=== PATIENT | female | born 1955 | race Two or more races ===

== ENCOUNTER 2017-09-26 19:55 | Emergency (ER) | payer MEDICAID ==
[~2017-09-26] VITALS: Ht 157.5 cm; Wt 75.7 kg
[2017-09-26 22:55] VITALS: BP 130/70
[2017-09-26] MEDS ORDERED: LIDOCAINE 1% HCL (LOCAL ANESTH.) INJ 20ML MDV IN ONE (23:00)
[2017-09-26] MEDS ORDERED: TETANUS-DIPTH-ACEL PERTUSSIS 0.5ML SYRG IM ONE (23:00)
== END 2017-09-26 23:36 | disposition home or self-care (01) ==
LOC: ER 19:59
DX: L02.414 Cutaneous abscess of left upper limb (principal); E78.5 Hyperlipidemia, unspecified; Z88.6 Allergy status to analgesic agent; Z88.8 Allergy status to other drugs, medicaments and biological substances
CPT/HCPCS: 10060; 90471; 90715; 99283; J2001

== ENCOUNTER 2018-01-02 14:42 | Emergency (ER) | payer MEDICAID ==
[~2018-01-02] VITALS: Ht 157.5 cm; Wt 74.4 kg
[2018-01-02 14:53] VITALS: BP 122/71
[2018-01-02] MEDS ORDERED: SODIUM CHLORIDE 0.9% 500 ML IVB ONE (15:06)
[2018-01-02] MEDS ORDERED: ONDANSETRON HCL 4 MG/2 ML VIAL IV ONE (15:15)
[2018-01-02] MEDS ORDERED: MORPHINE SULFATE 4 MG/ML SYR/VIAL IV ONE (15:15)
[2018-01-02 15:26] LABS: Basophils # (auto) 0.1 uL; Basophils % (auto) 1.2 % (0.0-2.0); Eosinophils # (auto) 0.1 uL; Eosinophils % (auto) 2.2 % (0.0-7.0); Hematocrit 41.7 % (36.0-46.0); Hemoglobin 14.1 g/dL (12.2-16.2); Lymphocytes # (auto) 2.2 uL; Lymphocytes % (auto) 34.4 % (10.0-50.0); Mean Corpuscular Hemoglobin 31.1 pg (28.0-32.0); Mean Corpuscular Hgb Conc. 33.9 g/dL (32.0-36.0); Mean Corpuscular Volume 91.8 fL (80.0-100.0); Monocytes # (auto) 0.5 uL; Monocytes % (auto) 7.5 % (0.0-12.0); Neutrophils # (auto) 3.4 uL; Neutrophils % (auto) 54.7 % (37.0-80.0); Nucleated Red Blood Cells % 0.6 %; Platelet Count (auto) 248 10^3/uL (140-450); Red Blood Cells 4.55 10^6/uL (4.0-5.20); Red Cell Distribution Width 13.1 % (11.8-14.3); White Blood Cell 6.2 10^3/uL (4.4-10.8)
[2018-01-02 15:33] LABS: Urine Bacteria NONE SEEN /hpf (None Seen); Urine Blood TRACE /uL (Negative); Urine Mucus FEW (None Seen); Urine Specific Gravity 1.034 (1.001-1.035); Urine WBC 1 /hpf (0 - 5)
[2018-01-02 15:49] LABS: Albumin 3.7 g/dL (3.4-5.0); BUN/Creatinine Ratio 18.9; Calcium 8.4 mg/dL (8.5-10.1); Magnesium 2.5 mg/dL (1.6-2.6); Potassium 3.8 mmol/L (3.5-5.1)
[2018-01-02 15:51] LABS: Bilirubin, Total 0.3 mg/dL (0.2-1.0); Total Protein 7.3 g/dL (6.4-8.2)
== END 2018-01-02 16:53 | disposition home or self-care (01) ==
LOC: ER 14:45
DX: R10.11 Right upper quadrant pain (principal); Z88.6 Allergy status to analgesic agent; Z88.8 Allergy status to other drugs, medicaments and biological substances; Z90.49 Acquired absence of other specified parts of digestive tract
CPT/HCPCS: 36415; 71045; 74176; 80053; 81001; 82150; 83690; 83735; 85025; 93005; 94761; 96374; 96375; 99285; J2270; J2405; J7030

== ENCOUNTER 2018-11-13 10:22 | Emergency (ER) | payer MEDICAID ==
[~2018-11-13] VITALS: Ht 157.5 cm; Wt 72.6 kg
[2018-11-13 10:30] VITALS: BP 146/76
[2018-11-13] MEDS ORDERED: ACETAMINOPHEN 325 MG TAB PO ONE (11:15)
[2018-11-13] MEDS ORDERED: IBUPROFEN 800 MG TAB PO ONE (11:15)
== END 2018-11-13 11:32 | disposition home or self-care (01) ==
LOC: ER 10:22
DX: S46.911A Strain of unspecified muscle, fascia and tendon at shoulder and upper arm level, right arm, initial encounter (principal); M19.011 Primary osteoarthritis, right shoulder; Z88.5 Allergy status to narcotic agent; Z88.8 Allergy status to other drugs, medicaments and biological substances; Z90.49 Acquired absence of other specified parts of digestive tract; W00.0XXA Fall on same level due to ice and snow, initial encounter; Y93.89 Activity, other specified; Y99.8 Other external cause status; Y92.89 Other specified places as the place of occurrence of the external cause
CPT/HCPCS: 73030

== ENCOUNTER 2019-03-23 16:03 | Emergency (ER) | payer OTHER, MEDICAID ==
[~2019-03-23] VITALS: Ht 157.5 cm; Wt 76.2 kg
[2019-03-23] MEDS ORDERED: KETOROLAC TROMETH 60MG/2ML VIAL IM ONE (23:00)
[2019-03-23 23:22] VITALS: BP 125/79
== END 2019-03-23 23:22 | disposition home or self-care (01) ==
LOC: ER 16:04
DX: S33.5XXA Sprain of ligaments of lumbar spine, initial encounter (principal); M62.830 Muscle spasm of back; E78.5 Hyperlipidemia, unspecified; Z90.49 Acquired absence of other specified parts of digestive tract; Z88.6 Allergy status to analgesic agent; Z88.8 Allergy status to other drugs, medicaments and biological substances; X58.XXXA Exposure to other specified factors, initial encounter; Y93.89 Activity, other specified; Y92.096 Garden or yard of other non-institutional residence as the place of occurrence of the external cause; Y99.9 Unspecified external cause status
CPT/HCPCS: 72100; 96372; 99283; J1885

== ENCOUNTER 2019-11-28 21:22 | Emergency (ER) | payer MEDICAID, OTHER ==
[~2019-11-28] VITALS: Ht 157.5 cm; Wt 78.5 kg
[2019-11-28 21:42] VITALS: BP 128/58
== END 2019-11-29 03:51 | disposition home or self-care (01) ==
LOC: ER 21:24
DX: M13.842 Other specified arthritis, left hand (principal); M13.841 Other specified arthritis, right hand; E78.5 Hyperlipidemia, unspecified; Z88.8 Allergy status to other drugs, medicaments and biological substances; Z88.5 Allergy status to narcotic agent
CPT/HCPCS: 93005

== ENCOUNTER 2021-07-11 21:15 | Emergency (ER) | payer OTHER ==
[~2021-07-11] VITALS: Ht 157.5 cm; Wt 72.6 kg
[2021-07-12 01:57] VITALS: BP 164/70
== END 2021-07-12 03:31 | disposition home or self-care (01) ==
LOC: ER 21:15
DX: R51.9 Headache, unspecified (principal); R07.89 Other chest pain; M54.6 Pain in thoracic spine; E78.5 Hyperlipidemia, unspecified; M19.90 Unspecified osteoarthritis, unspecified site; Z90.49 Acquired absence of other specified parts of digestive tract; Z88.6 Allergy status to analgesic agent; Z88.8 Allergy status to other drugs, medicaments and biological substances; V43.52XA Car driver injured in collision with other type car in traffic accident, initial encounter; Y93.89 Activity, other specified; Y92.410 Unspecified street and highway as the place of occurrence of the external cause; Y99.8 Other external cause status
CPT/HCPCS: 70450; 71250; 72128; 93005

== ENCOUNTER 2022-06-13 09:15 | Emergency (ER) | payer OTHER, MEDICAID ==
[~2022-06-13] VITALS: Ht 157.5 cm; Wt 76.3 kg
[2022-06-13] MEDS ORDERED: LEVO500T31 PO (10:51)
[2022-06-13] MEDS ORDERED: BENZ100C19 PO (10:51)
[2022-06-13 10:55] VITALS: BP 124/65
== END 2022-06-13 11:02 | disposition home or self-care (01) ==
LOC: ER 09:15
DX: J20.9 Acute bronchitis, unspecified (principal); E78.5 Hyperlipidemia, unspecified; Z90.49 Acquired absence of other specified parts of digestive tract
CPT/HCPCS: 71046

== ENCOUNTER 2023-04-25 08:07 | Emergency (ER) | payer OTHER, MEDICAID ==
[~2023-04-25] VITALS: Ht 157.5 cm; Wt 77.2 kg
[~2023-04-25 08:07] MED LIST: BENZ100C19 PO; LEVO500T31 PO
[2023-04-25 09:01] LABS: Basophils # (auto) 0 10 ^3/uL (0-0.2); Basophils % (auto) 0.9 % (0.0-2.0); Eosinophils # (auto) 0.1 10 ^3/uL (0-0.8); Eosinophils % (auto) 1.8 % (0.0-7.0); Hematocrit 40.7 % (36.0-46.0); Hemoglobin 13.7 g/dL (12.2-16.2); Lymphocytes # (auto) 1.7 10 ^3/uL (0.4-5.4); Mean Corpuscular Hemoglobin 30.5 pg (28.0-32.0); Mean Corpuscular Hgb Conc. 33.6 g/dL (32.0-36.0); Mean Corpuscular Volume 90.7 fL (80.0-100.0); Monocytes # (auto) 0.6 10 ^3/uL (0-1.3); Monocytes % (auto) 11.8 % (0.0-12.0); Neutrophils # (auto) 2.4 10 ^3/uL (1.6-8.6); Neutrophils % (auto) 50.5 % (37.0-80.0); Nucleated Red Blood Cells % 0.3 %; Red Blood Cells 4.49 10^6/uL (4.0-5.20); White Blood Cell 4.7 10^3/uL (4.4-10.8)
[2023-04-25 09:25] VITALS: BP 112/77
[2023-04-25 09:29] LABS: Albumin 3.5 g/dL (3.4-5.0); Calcium 8.5 mg/dL (8.5-10.1); Potassium 3.5 mmol/L (3.5-5.1)
[2023-04-25 09:33] LABS: BUN/Creatinine Ratio 19.7 (10.0-20.0); Bilirubin, Total 0.4 mg/dL (0.2-1.0); Total Protein 7.2 g/dL (6.4-8.2)
[2023-04-25 09:50] LABS: Urine Bacteria FEW /hpf (None Seen); Urine Blood Negative /uL (Negative); Urine Mucus FEW (None Seen); Urine Specific Gravity 1.026 (1.001-1.035); Urine WBC 1 /hpf (0 - 5)
[2023-04-25] MEDS ORDERED: CEPH500C PO (10:41)
[2023-04-25] MEDS ORDERED: IBUP-1456 PO (10:41)
[2023-04-25] MEDS ORDERED: KETOROLAC TROMETH 60MG/2ML VIAL IM ONE (10:45)
== END 2023-04-25 10:53 | disposition home or self-care (01) ==
LOC: ER 08:07
DX: N20.0 Calculus of kidney (principal); K76.0 Fatty (change of) liver, not elsewhere classified; K65.4 Sclerosing mesenteritis; E78.5 Hyperlipidemia, unspecified; Z90.49 Acquired absence of other specified parts of digestive tract; Z88.6 Allergy status to analgesic agent
CPT/HCPCS: 36415; 74176; 80053; 81001; 83690; 84484; 85025; 93005

== ENCOUNTER 2023-10-08 16:41 | Emergency (ER) | payer OTHER, MEDICAID ==
[~2023-10-08] VITALS: Ht 157.5 cm; Wt 80.0 kg
[~2023-10-08 16:41] MED LIST changes: +CEPH500C PO; +IBUP-1456 PO
[2023-10-08] MEDS ORDERED: FAMO20TA10 PO (17:22)
[2023-10-08] MEDS ORDERED: HYDR-3682 PO (17:22)
[2023-10-08] MEDS ORDERED: PRED20TA2 PO (17:22)
[2023-10-08 17:30] VITALS: BP 147/79; PULSE 81; RESP 18; TEMP 97.9; O2SAT 98
== END 2023-10-08 17:31 | disposition home or self-care (01) ==
LOC: ER 16:41
DX: L30.8 Other specified dermatitis (principal); M19.90 Unspecified osteoarthritis, unspecified site; E78.5 Hyperlipidemia, unspecified; Z98.890 Other specified postprocedural states; Z88.8 Allergy status to other drugs, medicaments and biological substances; Z79.899 Other long term (current) drug therapy

== ENCOUNTER 2024-01-27 09:16 | Emergency (ER) | payer OTHER, MEDICAID ==
[~2024-01-27] VITALS: Ht 157.5 cm; Wt 77.7 kg
[~2024-01-27 09:16] MED LIST changes: +FAMO20TA10 PO; +HYDR-3682 PO; +PRED20TA2 PO
[2024-01-27 09:22] VITALS: BP 142/68; PULSE 86; RESP 18; TEMP 97.4; O2SAT 97
[2024-01-27 11:10] LABS: Urine Bacteria NONE SEEN /hpf (None Seen); Urine Blood 3+ /uL (Negative); Urine Clarity HAZY (Clear); Urine Color Yellow (Yellow); Urine Protein, UAD 2+ (Negative); Urine Specific Gravity 1.019 (1.001-1.035); Urine Urobilinogen Normal (Negative); Urine WBC 706 /hpf (0 - 5)
[2024-01-27] MEDS ORDERED: PHEN95TA10 PO (11:26)
[2024-01-27] MEDS ORDERED: NITR-87 PO (11:26)
== END 2024-01-27 11:33 | disposition home or self-care (01) ==
LOC: ER 09:16
DX: N39.0 Urinary tract infection, site not specified (principal); E78.5 Hyperlipidemia, unspecified; Z90.49 Acquired absence of other specified parts of digestive tract; Z88.6 Allergy status to analgesic agent; Z88.8 Allergy status to other drugs, medicaments and biological substances
CPT/HCPCS: 81001

== ENCOUNTER 2024-05-04 09:31 | Emergency (ER) | payer OTHER, MEDICAID ==
[~2024-05-04] VITALS: Ht 157.5 cm; Wt 75.7 kg
[~2024-05-04 09:31] MED LIST changes: +NITR-87 PO; +PHEN95TA10 PO
[2024-05-04 10:10] VITALS: BP 142/77; PULSE 68; RESP 18; TEMP 98; O2SAT 96
[2024-05-04] MEDS ORDERED: MELO7.5T7 PO (12:17)
[2024-05-04] MEDS: methylPREDNISolone SOD SUCC 125 MG/2 ML VL IM ONE (12:26)
== END 2024-05-04 12:36 | disposition home or self-care (01) ==
LOC: ER 09:31
DX: M54.30 Sciatica, unspecified side (principal); M19.90 Unspecified osteoarthritis, unspecified site; E78.5 Hyperlipidemia, unspecified; Z88.5 Allergy status to narcotic agent; Z88.8 Allergy status to other drugs, medicaments and biological substances; Z90.49 Acquired absence of other specified parts of digestive tract; Z79.899 Other long term (current) drug therapy
CPT/HCPCS: 72100; 96372; 99283; J2919